=== PATIENT | female | born 1990 | race Asian ===

== ENCOUNTER 2021-06-07 23:37 | Inpatient (IN) | payer OTHER, SELFPAY ==
[2021-06-07 23:54] VITALS: BP 115/77; PULSE 90
[2021-06-08] VITALS (78 sets, daily range): BP systolic 97–136; BP diastolic 53–95; PULSE 43–104; RESP 16–18; TEMP 36.4–37; O2SAT 96–100; BMI 26.0
[2021-06-08] MEDS: LACTATED RINGERS 1,000 ML 125 ML IV CONT ×2 (00:13→00:52)
[2021-06-08 00:20] LABS: Basophils Absolute Auto 0.1 K/mm3 (0.0-0.1); Basophils Percent Auto 0.6 % (0.2-1.2); Eosinophils Absolute Auto 0.2 K/mm3 (0-0.3); Eosinophils Percent Auto 2.2 % (0-4.4); Hematocrit 37.5 % (37.0-47.0); Hemoglobin 11.9 g/dL (12.0-15.0); Immature Granulocyte Absolute 0.05 K/mm3 (0.00-0.031); Immature Granulocyte Percent A 0.5 % (0-0.5); Lymphocytes Absolute Auto 2.47 K/mm3 (0.9-3.2); Lymphocytes Percent Auto 22.3 % (18.3-44.2); Mean Corpuscular HGB Conc 31.7 g/dl (32-36); Mean Corpuscular Hemoglobin 27.5 pg (26-34); Mean Corpuscular Volume 86.6 fl (80-100); Mean Platelet Volume 11.7 fl (7.4-10.4); Monocytes Absolute Auto 0.8 K/mm3 (0.1-0.6); Neutrophils Absolute Auto 7.5 K/mm3 (1.3-6.7); Neutrophils Percent Auto 67.4 % (45.5-73.1); Platelet Count Result 186 k/mm3 (150-375); Red Blood Count 4.33 M/mm3 (4.2-5.4); Red Cell Distribution Width 13.9 % (11.5-14.5); White Blood Count 11.1 K/mm3 (4.5-10.0)
--- NOTE | 2021-06-08 00:46 | WPDANESEPP ---
Anes - Eval Pre Procedure Procedure: Labor epidural Date/Time: 06/08/21 00:46 Surgeon: Christiano Baxter Preop Diagnosis: Abd pain with contractions Pre Op Diagnosis: IOL Patient Data Age: 31 Gender: F Height: 1.5 m Weight: 58.5 kg Last Vital Signs Pulse 78 06/08/21 00:45 BP 122/81 06/08/21 00:45 Allergies Allergy/AdvReac Type Severity Reaction Status Date / Time No Known Allergies Allergy Unverified 12/06/18 13:30 Laboratory Tests 06/08/21 06/08/21 00:04 00:04 WBC 11.1 K/mm3 H K/mm3 (4.5-10.0) RBC 4.33 M/mm3 M/mm3 (4.2-5.4) Hgb 11.9 g/dL L g/dL (12.0-15.0) Hct 37.5 % % (37.0-47.0) MCV 86.6 fl fl (80-100) MCH 27.5 pg pg (26-34) MCHC 31.7 g/dl L g/dl (32-36) RDW 13.9 % % (11.5-14.5) Plt Count 186 k/mm3 k/mm3 (150-375) MPV 11.7 fl H fl (7.4-10.4) Immature Gran % (Auto) 0.5 % % (0-0.5) Neut % (Auto) 67.4 % % (45.5-73.1) Lymph % (Auto) 22.3 % % (18.3-44.2) [place] % (Auto) 7.0 % % (2.6-8.5) Eos % (Auto) 2.2 % % (0-4.4) Baso % (Auto) 0.6 % % (0.2-1.2) Lymph # (Auto) 2.47 K/mm3 K/mm3 (0.9-3.2) [place] # (Auto) 0.8 K/mm3 H K/mm3 (0.1-0.6) Eos # (Auto) 0.2 K/mm3 K/mm3 (0-0.3) Baso # (Auto) 0.1 K/mm3 K/mm3 (0.0-0.1) Abs Immat Gran (auto) 0.05 K/mm3 H K/mm3 (0.00-0.031) Absolute Neuts (auto) 7.5 K/mm3 H K/mm3 (1.3-6.7) Absolute Nucleated RBC 0.0 K/mm3 K/mm3 (0.0-0.012) Nucleated RBC % 0.0 % % (0.0-0.2) RPR Pending Patient hx anesthesia problems: none Family hx anesthesia problems: none Results Review: All pre-operative results and documents have been reviewed as part of the pre-operative evaluation. [facility] Past Medical History Medical History Overweight (BMI 25.0-29.9) and not yet delivered Family History Family History Other Adopted Social History Social History Smoking status: Never smoker Second hand tobacco smoke exposure: No Alcohol intake: current Substance use: never Spiritual care concerns: No Exam Day of Procedure 06/08/21 00:46 Patient weight: overweight Lungs: clear to auscultation Airway: Mallampati scale class II Neurological: alert and oriented
--- NOTE | 2021-06-08 04:11 | PM.OBPRVD ---
OB - Delivery Note Procedure Delivery date: 06/08/21 events: No Care Intrapartal events: None Induction method: none Delivery monitor: external FHT Route of delivery: Episiotomy description: None Laceration Description: None Quantitative Blood Loss (ml): 58 Anesthesia type: Epidural Disposition: floor Baby Date of : 06/08/21 Time of : 04:03 Weeks of gestation at delivery: 40 Infant gender: Male Weight (pounds): 6 Weight (ounces): 10 position: Right Occiput Anterior Placenta delivery description: Spontaneous cord vessel description: 3 Vessels and Nuchal Cord score one minute: 9 score five minutes: 9
--- NOTE | 2021-06-08 04:13 | PM.IMHP ---
H&P: HPI History of Present Illness Date/Time: 06/08/21 04:13 31-year-old 3 para 2 last menstrual period of 1 09 24, EDC of 06/04/2021, confirmed by 10 week ultrasound presents at 40 weeks gestation in active labor. She is negative group B strep. She was scheduled for induction tomorrow Chief Complaint: Labor at term Review of Systems Review of Systems: All systems reviewed & are unremarkable except as noted in HPI and below PMFSH Past Medical History Medical History Overweight (BMI 25.0-29.9) and not yet delivered Family History Family History Other Adopted Social History Social History Smoking status: Never smoker Second hand tobacco smoke exposure: No Alcohol intake: current Substance use: never Spiritual care concerns: No Meds Home Medications and Allergies Home Medications Medication Instructions Recorded Confirmed Type PNV cmb#95-ferrous fumarate-FA 1 tablet PO DAILY 06/08/21 06/08/21 History [] Allergies Allergy/AdvReac Type Severity Reaction Status Date / Time No Known Allergies Allergy Unverified 12/06/18 13:30 Vital Signs Vital Signs - 24 hr 06/07/21 23:54 06/08/21 00:00 06/08/21 00:16 Temperature Pulse Rate 90 80 68 Blood Pressure 115/77 111/75 116/80 Pulse Oximetry 06/08/21 00:30 06/08/21 00:45 06/08/21 00:48 Temperature Pulse Rate 82 78 Blood Pressure 120/80 122/81 Pulse Oximetry 100 06/08/21 00:51 06/08/21 00:53 06/08/21 00:56 Temperature Pulse Rate 91 99 90 Blood Pressure 133/90 136/92 H 111/59 L Pulse Oximetry 100 06/08/21 00:58 06/08/21 01:00 06/08/21 01:01 Temperature Pulse Rate 90 81 Blood Pressure 120/95 H 109/67 Pulse Oximetry 100 06/08/21 01:03 06/08/21 01:04 06/08/21 01:06 Temperature Pulse Rate 80 80 Blood Pressure 105/65 112/71 Pulse Oximetry 100 06/08/21 01:07 06/08/21 01:09 06/08/21 01:12 Temperature Pulse Rate 73 74 Blood Pressure 104/57 L 108/68 Pulse Oximetry 100 100 06/08/21 01:15 06/08/21 01:17 06/08/21 01:18 Temperature Pulse Rate 73 73 Blood Pressure 108/67 116/73 Pulse Oximetry 100 06/08/21 01:21 06/08/21 01:22 06/08/21 01:24 Temperature Pulse Rate 71 72 Blood Pressure 105/68 119/75 Pulse Oximetry 100 06/08/21 01:27 06/08/21 01:30 06/08/21 01:32 Temperature Pulse Rate 71 71 Blood Pressure 109/73 118/76 Pulse Oximetry 100 99 06/08/21 01:33 06/08/21 01:36 06/08/21 01:37 Temperature Pulse Rate 75 73 Blood Pressure 104/65 99/62 L Pulse Oximetry 100 06/08/21 01:40 06/08/21 01:42 06/08/21 01:46 Temperature Pulse Rate 89 73 Blood Pressure 106/53 L 102/67 Pulse Oximetry 100 06/08/21 01:47 06/08/21 01:52 06/08/21 01:57 Temperature Pulse Rate Blood Pressure Pulse Oximetry 100 99 99 06/08/21 02:00 06/08/21 02:02 06/08/21 02:07 Temperature Pulse Rate 70 Blood Pressure 106/65 Pulse Oximetry 98 98 06/08/21 02:12 06/08/21 02:15 06/08/21 02:17 Temperature Pulse Rate 72 Blood Pressure 103/67 Pulse Oximetry 98 99 06/08/21 02:22 06/08/21 02:27 06/08/21 02:30 Temperature Pulse Rate 68 Blood Pressure 106/73 Pulse Oximetry 98 98 06/08/21 02:32 06/08/21 02:37 06/08/21 02:42 Temperature Pulse Rate Blood Pressure Pulse Oximetry 99 100 100 06/08/21 02:45 06/08/21 02:47 06/08/21 02:52 Temperature Pulse Rate 70 Blood Pressure 112/70 Pulse Oximetry 99 96 06/08/21 02:57 06/08/21 03:00 06/08/21 03:02 Temperature Pulse Rate 75 Blood Pressure 100/55 L Pulse Oximetry 100 100 06/08/21 03:07 06/08/21 03:12 06/08/21 03:15 Temperature Pulse Rate 77 Blood Pressure 101/58 L Pulse Oximetry 100 100 06/08/21 03:
--- NOTE | 2021-06-08 05:37 | PC.NURSE ---
[facility] expand charting under John Erickson RNon 06/08/21 [id number] was charted by Lindsay Fernandez RN.
[2021-06-08] MEDS: MULTIVIT/MIN/PREN/FOL AC/IRON TABLET 1 TAB PO (09:24)
[2021-06-08] MEDS: DOCUSATE SODIUM 100 MG CAPSULE PO (09:24)
[2021-06-08] MEDS: LANOLIN (LANSINOH) 7.5 GM CREAM 1 APPLIC TOPICAL (09:25)
[2021-06-08] MEDS: IBUPROFEN 600 MG TABLET PO (10:53)
[2021-06-08 11:03] LABS: Rapid Plasma Reagin Non-Reactive (NonReactive)
--- NOTE | 2021-06-08 11:48 | PC.NURSE ---
0725 Mother admitted to second floor OB from labor and delivery after vaginal delivery of viable male infant at [address] Christiano Baxter. Mother is a and is choosing to pump and bottle feed . FOB present. 0900 couple oriented to room, staffing and procedures; admission folder reviewed. Pt's VSS and assessment WNL.
--- NOTE | 2021-06-08 12:38 | PC.NURSE ---
Breast pump provided due to maternal choice. Mother told primary RN that she chooses to only pump and feed. Primary RN set patient up with pump and pumping log. Patient denies any questions. Phone number for services circled on elimination sheet.
[2021-06-09] VITALS: BP 123/73; PULSE 68; RESP 16; TEMP 36.9; O2SAT 99
[2021-06-09 04:00] VITALS: BP 115/74; PULSE 70; RESP 16; TEMP 37; O2SAT 99
[2021-06-09 05:17] LABS: Hematocrit 31.9 % (37.0-47.0); Hemoglobin 10.3 g/dL (12.0-15.0)
[2021-06-09 07:30] VITALS: BP 129/81; PULSE 104; RESP 16; TEMP 36.5; O2SAT 99
--- NOTE | 2021-06-09 07:39 | PM.DS ---
DS: Admitting Diagnosis Discharge Date Admitting Diagnosis term in active labor DS: Summary Hospital Course Hospital Course: the patient was admitted in active labor. Her hospital course was unremarkable and she underwent spontaneous vaginal delivery. She was up, voiding without difficulty, ambulating, generally without complaints Time Spent with Patient Time attestation: Total time spent providing and/or coordinating discharge services: Exam Const: General: no acute distress Eyes: General: appearance normal, both eyes and all related structures Neck: Neck: supple and no JVD Thyroid: thyroid normal Resp: Effort & Inspection: normal respiratory effort Auscultation: clear to auscultation bilaterally Cardio: Rate: regular rate Rhythm: regular rhythm GI: Inspection: non-distended GI Palp: Yes Soft to palpation, No Tenderness to palpation present (GI) and No Guarding due to palpation present (GI) Auscultation: normal bowel sounds : General: Yes bladder normal to palpation External Female Exam: normal external appearance Speculum Exam - Vagina: normal vaginal discharge and No vaginal bleeding Speculum Exam - Cervix: nontender Bimanual exam- vagina & uterus: bladder normal to palpation and No Cervical tenderness present OB/external & speculum: No vaginal bleeding Skin: General skin exam: no rashes or lesions noted Extrem: General: normal to inspection and no edema Psych: Mental Status: mental status grossly normal Affect: normal affect DS: Data Data Completed and Pending Labs on day of discharge: Labs from last 24 hours 06/09/21 06/08/21 05:02 00:04 Hgb 10.3 L Hct 31.9 L RPR Non-reactive Discharge Plan Discharge Attending physician on discharge: Esteban Everett Discharging Clinician: Esteban Everett Patient Disposition: Home, Self-Care Activity: may shower, no driving and pelvic rest Diet: heart healthy Patient Instructions: Antibiotic Form Stand Alone Forms: General Discharge Information Follow-up/Referrals: Esteban Everett MD [Physician] - Discharge Medications: Continued PNV cmb#95-ferrous fumarate-FA [] 28 mg iron- 800 mcg Tablet 1 tablet PO DAILY RF: 0 Date of admission: 06/07/21 23:37 Primary Care Provider: Edith Triplett Admitting Provider: Esteban Everett Attending physician on admission: Esteban Everett Condition: Stable
--- NOTE | 2021-06-09 07:41 | PM.OBPNVD ---
OB - PN: Subj Subjective Date/time seen: 06/09/21 07:41 Patient comments: no complaints and pain well controlled baby status: doing well and nursing well OB - PN: Obj Data Labs CBC & Chem 7: 06/09/21 05:02 Labs: Laboratory Results - last 24 hr 06/08/21 06/09/21 00:04 05:02 Hgb 10.3 L Hct 31.9 L RPR Non-reactive OB - PN A/P Plan day: 2 Plan: routine care, discharge home and follow up 6 weeks Time Spent With Patient Time: Total time spent is greater than 50% in coordination of care (as documented) at patient's floor/unit and/or counseling patient: Time with patient: less than 15 minutes Review of Systems Review of Systems: All systems reviewed & are unremarkable except as noted in HPI and below Exam Const: General: no acute distress Eyes: General: appearance normal, both eyes and all related structures Neck: Neck: supple and no JVD Thyroid: thyroid normal Resp: Effort & Inspection: normal respiratory effort Auscultation: clear to auscultation bilaterally Cardio: Rate: regular rate Rhythm: regular rhythm GI: Inspection: non-distended GI Palp: Yes Soft to palpation, No Tenderness to palpation present (GI) and No Guarding due to palpation present (GI) Auscultation: normal bowel sounds : General: Yes bladder normal to palpation External Female Exam: normal external appearance Speculum Exam - Vagina: normal vaginal discharge and No vaginal bleeding Speculum Exam - Cervix: nontender Bimanual exam- vagina & uterus: bladder normal to palpation and No Cervical tenderness present OB/external & speculum: No vaginal bleeding Skin: General skin exam: no rashes or lesions noted Extrem: General: normal to inspection and no edema Psych: Mental Status: mental status grossly normal Affect: normal affect
--- NOTE | 2021-06-09 14:35 | WPDANLDPN2 ---
Anes-Prog Note L&D Date/Time: 06/09/21 14:35 Comfortable throughout: labor and delivery Neuraxial method: epidural Epidural/Spinal procedure site: clean & non-tender Neuro status: Neuro function grossly intact. Cardiovascular status: normal Respiratory status: normal Airway patency: baseline Mental status: baseline Post-Op hydration status: normal Vital Signs: Last Vital Signs Temp 36.5 C 06/09/21 07:30 Pulse 104 H 06/09/21 07:30 Resp 16 06/09/21 07:30 BP 129/81 06/09/21 07:30 Pulse Ox 99 06/09/21 07:30 Pain score (VAS): 0 Post-procedural complaints: none Patient feedback: Patient satisfied with anesthetic care.
--- NOTE | 2021-06-09 15:00 | PC.NURSE ---
PT introductions made and plan of care discussed per post , pain management, bottle feeding, pumping daily care activities and pending discharge to home. PT verbalized understanding of such care. PT sole recipient of education and instructions per shift. no barriers to learning identified and mom received education through one to one discussion, mom baby care guide and demonstration. PT verbalized understanding of such care.
--- NOTE | 2021-06-09 15:26 | PC.NURSE ---
1000 Breast feeding note; mother is bottle feeding and pumping at each feeding per her request; she reports she did not pump overnight. Nurse reinforced importance of consistent pumping at each of baby's feedings to bring milk in and maintain milk supply. She voiced understanding. Mother has Mother Baby Guide, with breast feeding pages flagged and LC contact information. She had no questions or concerns for nurse.
--- NOTE | 2021-06-09 17:45 | PC.NURSE ---
Pt received discharge instructions per protocol and verbalized understanding of such care. Patient was given the opportunity to view the discharge video Mother & Baby Care, The First Two Weeks and to ask questions. Patient declined viewing the video and has been given the mother/baby guide for home reference. Pt states has a two and and three year old at home.
--- NOTE | 2021-06-09 18:40 | PC.NURSE ---
PT discharged to home ambulatory accompanied by spouse and to waiting car. Follow up appts confirmed
[2021-06-11 09:36] VITALS: BP 108/72; PULSE 75; RESP 16; TEMP 37; O2SAT 99
== END 2021-06-09 18:40 | disposition home or self-care (01) | DRG 560 ==
LOC: ANHLDR 23:40 → ANHOB2 06-08 07:28
PROVIDERS: Admitting Provider Obstetrics & Gynecology; PCP Internal Medicine; Visit Provider Obstetrics & Gynecology
DX: O69.81X0 Labor and delivery complicated by cord around neck, without compression, not applicable or unspecified (principal); Z37.0 Single live birth; Z3A.40 40 weeks gestation of pregnancy
CPT/HCPCS: 36415; 85014; 85018; 85025; 86592; 86850; 86900; 86901; A9270; J2795; J7120

== ENCOUNTER 2023-09-22 11:17 | Outpatient (CLI) | payer OTHER, SELFPAY ==
[2023-09-22 11:59] LABS: Hematocrit 41.9 % (35.0-49.0); Hemoglobin 13.5 g/dL (12.0-15.0); Mean Corpuscular HGB Conc 32.2 g/dL (32.0-36.0); Mean Corpuscular Hemoglobin 28.3 pg (27.0-31.0); Mean Corpuscular Volume 87.8 fL (78.0-102.0); Mean Platelet Volume 10.6 fl (9.2-11.8); Platelet Count Result 240 K/mm3 (150-420); Red Blood Count 4.77 M/mm3 (4.20-5.40); White Blood Count 5.4 K/mm3 (4.8-10.8)
[2023-09-22 12:11] LABS: Anion Gap 6 mmol/L (8-16); Blood Urea Nitrogen 8 mg/dL (7-18); Calcium 8.6 mg/dL (8.5-10.1); Carbon Dioxide 31 mmol/L (21-32); Chloride 102 mmol/L (98-108); Estimated Glomerular Filt Rate > 60; Glucose 113 mg/dL (70-99); Osmolality Calculated 287 mOsm/kg (285-295); Potassium 3.8 mmol/L (3.5-5.1); Sodium 139 mmol/L (136-145)
[2023-09-22 12:26] LABS: Strep Group A RT-PCR NOT DETECTED (Negative)
[2023-09-22 12:32] LABS: Influenza A QL RT-PCR Positive (Negative); Influenza B QL RT-PCR Negative (Negative); SARS-CoV-2 RNA PCR Negative (Negative)
[2023-09-22 12:40] LABS: Band Neutrophils Percent 0 % (0-6); Basophils Percent Manual 0 % (0-1); Eosinophils Percent Manual 2 % (1-6); Lymphocytes Absolute Manual 1.62 K/mm3 (1.1-4.5); Lymphocytes Percent Manual 30 % (18-44); Monocytes Absolute Manual 0.43 K/mm3 (0.1-0.90); Monocytes Percent Manual 8 % (3-9); Neutrophils Absolute Manual 3.24 K/mm3 (1.7-7.2); Neutrophils Percent Manual 60 % (46-73); Platelet Estimate Adequate (Adequate); Total Cells Counted 100
== END 2023-09-22 11:18 | disposition home or self-care (01) ==
PROVIDERS: PCP Internal Medicine; Visit Provider Internal Medicine
DX: R05.9 Cough, unspecified (principal); R50.9 Fever, unspecified
CPT/HCPCS: 36415; 80048; 85025; 87636; 87651

== ENCOUNTER 2024-11-16 13:37 | Emergency (ER) | payer OTHER, SELFPAY ==
[2024-11-16] VITALS (7 sets, daily range): BP systolic 103–118; BP diastolic 66–75; PULSE 62–91; RESP 16–29; TEMP 36.2–36.6; O2SAT 97–100
--- NOTE | ~2024-11-16 | CT_ITS ---
EXAMINATION: CT abdomen pelvis w con DATE: 11/16/2024 15:45 INDICATION: Acute epigastric pain TECHNIQUE: Computed tomography (CT) of the abdomen and pelvis was performed with 100 mL Omnipaque-350 intravenous contrast. Automated exposure control and iterative reconstruction technique were employe d. The dose-length product was 250.45 mGy-cm. COMPARISON: None. FINDINGS: Lower thorax: Unremarkable Liver: Normal. Biliary/Gallbladder: Cholelithiasis. No inflammatory change or pericholecystic fluid. Mild intrahepat ic duct dilation. The common bile duct measures up to 8 mm. Pancreas: No mass. The main pancreatic duct measures up to 3 mm. Spleen: Subcentimeter hypodensity, likely cyst or hemangioma Adrenals:No mass. Kidneys: No suspicious mass, obstructing stone, or hydronephrosis. 4 mm nonobstructing right midpole calcification. 3.7 cm simple lower pole cyst. Multiple additional subcentimeter bilateral hypodensiti es that are too small to characterize but statistically most likely represent cysts. GI tract: Mild distal esophageal and gastric wall edema. No small or large bowel dilation. Appendix n ot confidently visualized. No right lower quadrant inflammatory change. Mesentery/Peritoneum: No ascites, mass, or free air. Retroperitoneum: No mass. Pelvis: Urinary bladder partially distended, with mild wall thickening and stranding. Normal uterus a nd bilateral ovaries. Left corpus luteal cyst.. Soft Tissues: Small uncomplicated appearing fat-containing umbilical hernia. Bones: No acute osseous finding. IMPRESSION: Mild esophagitis/gastritis. Mild intra-/extrahepatic bile duct dilation and pancreatic duct dilation, without obstructive stone o r mass detected. Correlate with biliary labs. Consider MRCP for further evaluation. Cystitis versus bladder wall thickening from incomplete distention. Reviewed, dictated and finalized at location K. IMPRESSION: Mild esophagitis/gastritis. Mild intra-/extrahepatic bile duct dilation and pancreatic duct dilation, witho ut obstructive stone or mass detected. Correlate with biliary labs. Consider MR CP for further evaluation. Cystitis versus bladder wall thickening from incomplete distention.
--- NOTE | 2024-11-16 14:00 | ECG_ITS ---
Test Date: 2024-11-16 13:57:07 Measurements Intervals [place] Rate: 74 P: 63 KS: 134 QRS: 81 QRSD: 91 T: 61 QT: 369 QTc: 411 Interpretive Statements SINUS RHYTHM No previous ECG available for comparison Electronically Signed On 11-18-2024 15:06:24 CDT by Feng Mg M.D.
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
[2024-11-16 15:09] LABS: Hematocrit 46.3 % (35.0-49.0); Hemoglobin 14.7 g/dL (12.0-15.0); Mean Corpuscular HGB Conc 31.7 g/dL (32-36); Mean Corpuscular Hemoglobin 29.2 pg (27.0-31.0); Mean Corpuscular Volume 91.9 fL (78.0-102.0); Mean Platelet Volume 10.2 fl (9.2-11.8); Platelet Count Result 298 K/mm3 (150-420); Red Blood Count 5.04 M/mm3 (4.20-5.40); Red Cell Distribution Width 12.9 % (11.6-14.4); White Blood Count 19.8 K/mm3 (4.8-10.8)
[2024-11-16 15:17] LABS: Pregnancy On Board Control Positive; Urine Pregnancy Test Negative
[2024-11-16 15:27] LABS: Alanine Aminotransferase 61 U/L (14-59); Albumin Level 4.1 g/dL (3.4-5.0); Alkaline Phosphatase 102 U/L (46-116); Anion Gap 12 mmol/L (4-12); Aspartate Amino Transferase 49 U/L (15-37); Bilirubin,Total 0.5 mg/dL (0.00-1.00); Blood Urea Nitrogen 10 mg/dL (7-18); Calcium 9.2 mg/dL (8.5-10.1); Carbon Dioxide 23 mmol/L (21-32); Chloride 104 mmol/L (98-108); Estimated Glomerular Filt Rate > 60; Glucose 106 mg/dL (70-99); Lipase 51 U/L (16-77); Osmolality Calculated 287 mOsm/kg (285-295); Potassium 3.8 mmol/L (3.5-5.1); Sodium 139 mmol/L (136-145); Total Protein 8.6 g/dL (6.4-8.2); Troponin I 4.5 ng/L (0.00-60.4)
[2024-11-16 17:14] LABS: Add Urine Microscopic? NO; Appearance Urine Clear (Clear); Bilirubin Urine Negative (Negative); Blood Urine Negative (Negative); Color Urine Light Yellow (Yellow); Glucose Urine UA Negative (Negative); Ketones Urine 1+ (Negative); Leukocyte Esterase Ur Negative LEU/UL (Negative); Nitrate Urine Negative (Negative); Protein Urine Negative (Negative)
== END 2024-11-16 17:30 | disposition home or self-care (01) ==
PROVIDERS: Emergency Provider Family Medicine; PCP Internal Medicine
DX: K29.70 Gastritis, unspecified, without bleeding (principal); K21.9 Gastro-esophageal reflux disease without esophagitis; K80.20 Calculus of gallbladder without cholecystitis without obstruction
CPT/HCPCS: 36415; 74177; 80053; 81003; 81025; 83690; 84484; 85027; 93005; 99284; Q9967

== ENCOUNTER 2024-12-02 09:27 | Outpatient (CLI) | payer OTHER, SELFPAY ==
--- NOTE | ~2024-12-02 | NM_ITS ---
NM hepatobiliary w pharm Procedure: Hepatobiliary scan performed following IV administration 6.4 mCi Tc 99m Choletec. At 60 m inutes 1 mcg CCK administered IV for evaluation of gallbladder ejection fraction. Indication: Right upper quadrant pain Comparison: CT dated 11/16/2024 Findings: There is normal radiotracer uptake in the liver parenchyma with prompt excretion into the b iliary tract. Gallbladder visualized at 15 minutes. Small bowel visualized at 30 minutes. Gallbla dder ejection fraction measures 17 %. (Normal is considered 10-90%, but most patients with gallbladde r dysfunction have GBEF of less than 35%) Impression: 1: Low gallbladder ejection fraction measuring 17%. Low GBEF is associated with gallbladder dysfunct ion, although not specific for acute or chronic cholecystitis. Reviewed, dictated and finalized at location A. Impression: 1: Low gallbladder ejection fraction measuring 17%. Low GBEF is associated wit h gallbladder dysfunction, although not specific for acute or chronic cholecyst itis.
== END 2024-12-02 09:28 | disposition home or self-care (01) ==
LOC: CHSIMG 09:27
PROVIDERS: PCP Internal Medicine; Visit Provider Internal Medicine
DX: R10.11 Right upper quadrant pain (principal); K80.20 Calculus of gallbladder without cholecystitis without obstruction; R74.01 Elevation of levels of liver transaminase levels
CPT/HCPCS: 78227; A9537; J2805